=== PATIENT | female | born 1995 | race Caucasian/White ===

== ENCOUNTER 2020-08-16 09:25 | Emergency (ER) | payer OTHER ==
[~2020-08-16] VITALS: Ht 157.5 cm; Wt 68.2 kg
[~2020-08-16 09:25] MED LIST: AMOXICILLIN500 M1 PO
[2020-08-16 09:28] VITALS: Ht 157.5 cm; Wt 68.2 kg
[2020-08-16] MEDS ORDERED: AMOXICILLIN875 MG PO (10:02)
== END 2020-08-16 10:11 | disposition home or self-care (01) ==
LOC: D.ER 09:25
DX: K01.1 Impacted teeth (principal)